=== PATIENT | female | born 1955 | race Caucasian/White ===

== ENCOUNTER 2023-11-09 13:09 | Emergency (ER) | payer MEDICARE, OTHER, SELFPAY ==
[2023-11-09 13:12] VITALS: BP 179/98
--- NOTE | 2023-11-09 13:33 | ED.GENMED ---
History of Present Illness
General
Chief Complaint: Abdominal Pain
Source: patient
Time Seen by Provider: 11/09/23 13:19
Travel History
Have you had any contact with someone who has COVID-19?: No
Do you have any symptoms of coronavirus? Fever > 100 degrees, chills, cough, shortness of breath, sore throat, loss of taste or smell, muscle aches, or headache?: No
History of Present Illness
History of Present Illness:
This patient is a 68-year-old female presents emergency department complaints of left mid upper and lower quadrant pain. It started around noon and is persistent since then. She said it feels like bad 'muscle cramps' and is very uncomfortable.
Sometimes the pain radiates to her 'crotch'. Patient has had the pain in the past, usually about once a week, randomly, and it typically gets better with a heating pad within 20 to 30 minutes. This did not improve which prompted her visit to the
ER. Patient is slightly nauseous with 'dry heaves' but no specific emesis, fever, chills, chest pain, dyspnea, urinary symptoms. Her last bowel movement was yesterday and was normal. Patient denies back pain, numbness, tingling, bleeding, or
other complaints
Past History
Past History
ED Past Medical History: GERD, HTN, Hypercholesterolemia and Other (Breast CVA COPD)
ED Past Surgical History: Orthopedic and Other (Umbilical herniorrhaphy, tubal)
Social History
Tobacco: Smoker
Alcohol: Occasional
Drug: None
Personal:
Living: with family
Employment: Employed
Family History
Family History: CAD
Phy Exam
Physical Exam
Physical Exam:
GENERAL: Alert , in no apparent distress
EYE: pupils equal and reactive
NECK: Supple, no significant adenopathy.
ENT: o/p clr, mmm.
CARDIAC: Regular rate and rhythm .
LUNGS: Clear breath sounds bilaterally, no acute respiratory distress, no wheezes/rales/rhonchi
ABDOMEN: Soft, mild to moderate left upper quadrant mid quadrant and lower quad tenderness, no r/g, no cvat
NEUROLOGICAL: Alert and oriented, no focal neuro deficits
SKIN: Warm and dry, skin intact.
MUSCULOSKELETAL: No edema, well perfused.
PSYCH: Normal and appropriate interaction.
Course
Orders/Labs/Results
Orders:
Orders
11/09/23 13:33
CT Abd/Pel (IV only)-[facility] only Urgent
Comment:
Reason For Exam: luq/llq pain
Morphine Sulfate 4 mg IV NOW STA
11/09/23 13:53
Complete Blood Count/No Diff Urgent
Comprehensive Metabolic Panel Urgent
Lipase Urgent
11/09/23 15:05
Urinalysis Reflex To Culture Urgent
Date Specimen was Collected: 11/09/23
Time Specimen was Collected: 14:45
Abnormal Lab Results
11/09/23
13:53
MCH 32.5 H pg
(27.0-31.0)
BUN 20 H mg/dl
(7-17)
11/09/23 13:53
11/09/23 13:53
Vital Signs
Initial and Last Documented VS:
Initial Vital Signs
Temp Pulse Resp BP Pulse Ox
97.8 F 74 16 179/98 99
11/09/23 13:12 11/09/23 13:12 11/09/23 13:12 11/09/23 13:12 11/09/23 13:12
Last Documented Vital Signs
Temp Pulse Resp BP Pulse Ox
97.8 F 78 17 152/89 95
11/09/23 13:12 11/09/23 16:30 11/09/23 16:30 11/09/23 16:10 11/09/23 16:30
*Critical Care Note
Total Time (30-74mins, 75-104mins- exclusive of procedures): Not Applicable
Update Note
Update Note:
Patient presents to the Emergency Department with ___left side abdominal pain
Number and Complexity of Problems Addressed at the Encounter
� Chronic conditions affecting care:
� Acute Exacerbation and/or Progression of Chronic Illness:
� Differential Diagnosis includes: But not limited to diverticulitis, kidney stone, colitis, etc.
Amount and/or Complexity of Data to be Reviewed and Analyzed
� I performed an independent evaluation of and my interpretation is:
EKG:
CT:No CT evidence for acute abnormality within the abdomen or pelvis.
Bony degenerative changes as described.
2 mm stable calcification within the anterior inferior head of the pancreas, compatible with a small benign dystrophic calcification. This is also unchanged comparing to CT scan of January 02, 2023.
Stable moderate hiatal hernia/partially intrathoracic stomach.
Xrays:
Laboratory Studies:UNREMARKABLE
Other:
� Review of other/old records reveals:
� Clinical information was obtained by an independent historian:
� Prescriptions/Medications Considered but not given:
� Further testing considered but not performed:
Risk of Complications and/or Morbidity or Mortality of Patient Management
� Social determinants of health affecting care:
� Discussion with other providers (PCP, Hospitalists, Consultants, etc):
� Escalation of care including admission/observation vs risk of discharge considered:repeat exam 446pm abd soft, nontnder, pt feels well. no specific etiology noted today, recommend close f/u and d/w her reasons to rted.
ED Attending Note
-
Portions of this chart may have been created with voice recognition software.� Occasional wrong word or��sound alike� substitutions may have occurred due to the inherent limitations of voice recognition software.
Discharge Plan
Departure
Patient Disposition: Home (Routine Discharge)
Date of Disposition: 11/09/23
Time of Disposition: 16:45
Patient with high blood pressure during this ER visit?: Yes
Condition: Good
Discharge Problem:
Abdominal pain
Instructions: Abdominal Pain
Prescriptions:
No Action
atorvastatin 10 MG tablet
10 mg PO QPM
famotidine 20 MG tablet
20 mg PO DAILY
levothyroxine 50 MCG tablet
50 mcg PO DAILY
letrozole 2.5 MG tablet
2.5 mg PO DAILY
irbesartan 300 MG tablet
300 mg PO DAILY
hydrochlorothiazide 12.5 MG tablet
12.5 mg PO DAILY@1200
multivitamin with folic acid [Tab-A-Dorcas] 1 TABLET tablet
1 tab PO DAILY
nicotine 14 MG patch 24 hour
14 mg transdermal DAILY 0RF
guaifenesin 200 MG/10 ML liquid
100 mg PO Q4HPRN PRN (Reason: Cough) 0RF
budesonide-formoterol [Symbicort] 1 PUFF HFA aerosol inhaler
2 puff inhalation R BID Qty: 1 0RF
tiotropium bromide [Spiriva Respimat] 1 PUFF mist
2 puff inhalation R DAILY Qty: 1 0RF
albuterol sulfate 18 GM HFA aerosol inhaler
18 gm IH Q4H PRN (Reason: shortness of breath) Qty: 1 0RF
prednisone 10 MG tablet
10 mg PO DAILY Qty: 20 0RF
Rx Instructions:
4 tabs (40mg) daily for 5 days
azithromycin 500 MG tablet
500 mg PO DAILY Qty: 5 0RF
venlafaxine [Effexor XR] 150 MG capsule,extended release 24hr
150 mg PO DAILY
Referrals:
Tracy Reilly PA-C [Family Provider] - Follow up in 2-3 days
Activity Restrictions/Additional Instructions:
IF YOU DEVELOP RECURRENT/NEW/WORSENING PAIN, ANY FEVER, VOMITING, BLEEDING, CHEST PAIN, TROUBLE BREATHING, OR OTHER WORRISOME SIGNS, GO TO THE ER IMMEDIATELY!
Interventions
Interventions:
*Risk Screen - Suicide Last Done: 11/09/23 13:12
*General Assessment Last Done: 11/09/23 13:12
*Neglect/Abuse Screening Last Done: 11/09/23 13:12
ED- Fall Risk Assessment Last Done: 11/09/23 14:05
*ED COVID-19 Vaccine History Last Done: 11/09/23 13:43
FY-Riukza-Upypzhopnn Assessment Last Done: 11/09/23 14:04
[2023-11-09 13:43] VITALS: BMI 43.6
[2023-11-09 13:53] VITALS: BP 157/83
[2023-11-09] MEDS: MORPHINE SULFATE 4 MG IV (13:53)
[2023-11-09 14:00] VITALS: BP 146/71
[2023-11-09 14:13] LABS: Hematocrit 40.9 % (37.0-47.0); Hemoglobin 13.7 g/dL (12.0-16.0); Mean Corp Hgb Conc. 33.5 g/dL (33.0-37.0); Mean Corpuscular Hgb 32.5 pg (27.0-31.0); Mean Corpuscular Volume 97.1 fL (81.0-99.0); Mean Platelet Volume 9.5 fL (7.4-10.4); Platelet Count 208 10^3/uL (130-400); Red Blood Cell Count 4.21 10^6/uL (4.20-5.40); Red Cell Dist. Width 12.6 % (11.5-14.5); White Blood Cell Count 5.9 10^3/uL (4.8-10.8)
[2023-11-09 14:30] LABS: ALT (SGPT) 21 U/L (0-35); AST (SGOT) 23 U/L (14-36); Albumin 4.2 g/dl (3.5-5.0); Alkaline Phosphatase 96 U/L (38-126); Blood Urea Nitrogen 20 mg/dl (7-17); Calcium 9.4 mg/dl (8.4-10.2); Carbon Dioxide 29 mmol/L (22-30); Chloride 105 mmol/L (98-107); Estimated Creatinine Clearance 83 ml/min; Glucose 93 mg/dl (70-99); Lipase 95 U/L (23-300); Potassium 4.3 mmol/L (3.5-5.1); Sodium 137 mmol/L (135-145); Total Bilirubin 0.4 mg/dl (0.2-1.3); Total Protein 6.9 g/dl (6.3-8.2); eGFR > 60.00
[2023-11-09 15:50] LABS: Urine Albumin Negative (Neg - Trace); Urine Bilirubin Negative (Negative); Urine Character Clear (Clear); Urine Color Yellow; Urine Glucose Negative (Negative); Urine Ketone Negative (Negative); Urine Leukocyte Negative (Negative); Urine Nitrite Negative (Negative); Urine Occult Blood Negative (Negative); Urine Specific Gravity 1.015 (<1.030); Urine Urobilinogen Negative (Neg - 1+)
[2023-11-09 16:10] VITALS: BP 152/89
== END 2023-11-09 17:15 | disposition home or self-care (01) ==
LOC: EMR 13:09
PROVIDERS: EMERGENCY PHYSICIAN Emergency Medicine; FAMILY PHYSICIAN Physician Assistant Medical
DX: R10.9 Unspecified abdominal pain (principal); R25.2 Cramp and spasm; R11.0 Nausea; F17.200 Nicotine dependence, unspecified, uncomplicated; I10 Essential (primary) hypertension; K44.9 Diaphragmatic hernia without obstruction or gangrene
CPT/HCPCS: 99285; 96374; 74177; 80053; 81003; 83690; 85027; Q9967

== ENCOUNTER → 2024-01-16 11:59 | Outpatient (REF) | payer MEDICARE, OTHER, SELFPAY | LOC: HWRAD 11:59 | PROVIDERS: ATTENDING PHYSICIAN Internal Medicine Hematology & Oncology; FAMILY PHYSICIAN Physician Assistant Medical; REFERRING PHYSICIAN Nurse Practitioner Adult Health | DX: Z72.0 Tobacco use (principal); M81.8 Other osteoporosis without current pathological fracture; F17.200 Nicotine dependence, unspecified, uncomplicated; R91.1 Solitary pulmonary nodule; T65.222D Toxic effect of tobacco cigarettes, intentional self-harm, subsequent encounter | CPT/HCPCS: 71250; 77080 ==

== ENCOUNTER → 2024-03-13 06:22 | Day surgery (SDC) | payer MEDICARE, OTHER, SELFPAY | LOC: GI 06:22 | PROVIDERS: ATTENDING PHYSICIAN Specialist; FAMILY PHYSICIAN Physician Assistant Medical | DX: R10.9 Unspecified abdominal pain (principal); R12 Heartburn; K44.9 Diaphragmatic hernia without obstruction or gangrene; K22.70 Barrett's esophagus without dysplasia; K21.00 Gastro-esophageal reflux disease with esophagitis, without bleeding; K29.50 Unspecified chronic gastritis without bleeding | CPT/HCPCS: 43239; 88305; 88342 ==

== ENCOUNTER → 2024-05-13 14:40 | Outpatient (REF) | payer MEDICARE, OTHER, SELFPAY | LOC: HWWDC 14:40 | PROVIDERS: ATTENDING PHYSICIAN Internal Medicine Hematology & Oncology; FAMILY PHYSICIAN Physician Assistant Medical | DX: Z12.31 Encounter for screening mammogram for malignant neoplasm of breast (principal) | CPT/HCPCS: 77063; 77067 ==

== ENCOUNTER → 2025-01-28 12:25 | Outpatient (REF) | payer MEDICARE, OTHER, SELFPAY | LOC: HWRAD 12:25 | PROVIDERS: ATTENDING PHYSICIAN Nurse Practitioner Family; FAMILY PHYSICIAN Physician Assistant Medical | DX: F17.210 Nicotine dependence, cigarettes, uncomplicated (principal) | CPT/HCPCS: 71271 ==

== ENCOUNTER → 2025-02-02 06:34 | Outpatient (REF) | payer MEDICARE, OTHER, SELFPAY | LOC: MRI 3T 06:34 | PROVIDERS: ATTENDING PHYSICIAN Physician Assistant; FAMILY PHYSICIAN Physician Assistant Medical | DX: M54.16 Radiculopathy, lumbar region (principal) | CPT/HCPCS: 72148 ==

== ENCOUNTER → 2025-04-14 13:46 | Outpatient (REF) | payer MEDICARE, OTHER, SELFPAY | LOC: RCS 13:46 | PROVIDERS: ATTENDING PHYSICIAN Internal Medicine Cardiovascular Disease; FAMILY PHYSICIAN Physician Assistant Medical | DX: R06.02 Shortness of breath (principal) | CPT/HCPCS: 93306 ==

== ENCOUNTER → 2025-08-04 13:42 | Outpatient (REF) | payer MEDICARE, OTHER, SELFPAY | LOC: HWRAD 13:42 | PROVIDERS: ATTENDING PHYSICIAN Nurse Practitioner Family; FAMILY PHYSICIAN Physician Assistant Medical | DX: R91.1 Solitary pulmonary nodule (principal) | CPT/HCPCS: 71250 ==